=== PATIENT | female | born 1970 ===

== ENCOUNTER 2021-11-09 16:19 | Emergency (ER) | payer OTHER, SELFPAY ==
[2021-11-09 17:06] VITALS: BP 116/78; PULSE 75; RESP 16; TEMP 36.2; O2SAT 100; BMI 31.1
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
== END 2021-11-09 18:01 | disposition home or self-care (01) ==
PROVIDERS: Emergency Provider Emergency Medicine Emergency Medical Services
DX: S16.1XXA Strain of muscle, fascia and tendon at neck level, initial encounter (principal); M54.2 Cervicalgia; V43.62XA Car passenger injured in collision with other type car in traffic accident, initial encounter; Y93.9 Activity, unspecified; Y92.410 Unspecified street and highway as the place of occurrence of the external cause; Y99.9 Unspecified external cause status
CPT/HCPCS: 99283; 99284

== ENCOUNTER 2022-11-03 16:18 | Emergency (ER) | payer OTHER, SELFPAY ==
--- NOTE | 2022-11-03 16:31 | ED.SKABFB ---
HPI - Skin/Abscess/Foreign Bdy General Chief complaint: Extremity Injury, Upper <AMANDA Yang - Last Filed: 11/03/22 16:31> Stated complaint: splint in finger <AMANDA Yang - Last Filed: 11/03/22 16:31> Time Seen by Provider: 11/03/22 18:31 <AMANDA Yang - Last Filed: 11/03/22 16:31> Source: patient, RN notes reviewed and front desk host <Harmeet Ayala - Last Filed: 11/03/22 20:47> Mode of arrival: ambulatory <Harmeet Ayala - Last Filed: 11/03/22 20:47> Limitations: language barrier <Harmeet Ayala - Last Filed: 11/03/22 20:47> History of Present Illness HPI narrative: 52-year-old female presents for evaluation of a splinter under her right index finger nail Patient reports that she was working 2 days ago on Wednesday when she accidentally got the splinter under nail. She currently denies any pain. She states that she has not been using the finger because she is concerned if she had said it will her become infected <Harmeet Ayala - Last Filed: 11/03/22 20:47> Related Data Home medications: Previous Rx's Medication Instructions Recorded acetaminophen 325 mg tablet 650 mg PO Q4H PRN pain #20 tabs 11/09/21 (Tylenol) cyclobenzaprine 10 mg tablet 10 mg PO TID PRN muscle spasm #10 11/09/21 tabs <AMANDA Yang - Last Filed: 11/03/22 16:31> Allergies/Adverse reactions: Allergies Allergy/AdvReac Type Severity Reaction Status Date / Time aspirin [ASA] Allergy Unknown HIVES Unverified 11/09/21 17:16 Penicillins [PCN] Allergy Unknown HIVES Unverified 11/09/21 17:16 <AMANDA Yang - Last Filed: 11/03/22 16:31> Review of Systems Constitutional: Constitutional: Reports as per HPI, Denies chills and Denies fever(s) <Harmeet Ayala - Last Filed: 11/03/22 20:47> Cardiovascular: Cardiovascular: Denies chest pain <Harmeet Ayala - Last Filed: 11/03/22 20:47> Integumentary/Breasts: Comments: Patient has a small splinter visible under her right index finger now <Harmeet Ayala - Last Filed: 11/03/22 20:47> PMFSH Social History Social History: Social History Advance Directives: No Advance Directives Information Provided: No <AMANDA Yang - Last Filed: 11/03/22 16:31> Physical Exam Vital Signs: Vital Signs: Last Vital Signs Temp 97.7 F 11/03/22 16:33 Pulse 82 11/03/22 16:33 Resp 16 11/03/22 16:33 BP 131/69 11/03/22 16:33 Pulse Ox 99 11/03/22 16:33 O2 Del Method Room Air 11/03/22 16:33 BMI result Body Mass Index 31.1 <AMANDA Yang - Last Filed: 11/03/22 16:31> Vital Signs: Last Vital Signs Temp 97.7 F 11/03/22 16:33 Pulse 82 11/03/22 16:33 Resp 16 11/03/22 16:33 BP 131/69 11/03/22 16:33 Pulse Ox 99 11/03/22 16:33 O2 Del Method Room Air 11/03/22 16:33 BMI result Body Mass Index 31.1 <Harmeet Ayala - Last Filed: 11/03/22 20:47> Const: General: healthy appearing, comfortable, no acute distress, alert and awake <Harmeet Ayala - Last Filed: 11/03/22 20:47> Nutritional Appearance: well nourished <Harmeet Ayala - Last Filed: 11/03/22 20:47> Orientation/consciousness: patient oriented x3 <Harmeet Ayala - Last Filed: 11/03/22 20:47> HEENT: Head: Yes normocephalic and Yes atraumatic <Harmeet Ayala - Last Filed: 11/03/22 20:47> Throat: Yes posterior oropharynx normal <Harmeet Ayala - Last Filed: 11/03/22 20:47> Skin: Other: Patient has approximately 1 cm linear, foreign body visible underneath the right index finger now almost the tip of the nail <Harmeet Ayala - Last Filed: 11/03/22 20:47> Neuro: General: patient oriented x3 <Harmeet Ayala - Last Filed: 11/03/22 20:47> Cranial nerves: Yes Bilaterally intact EOM present <Harmeet Ayala - Last Filed: 11/03/22 20:47> Cognition (Neuro): normal cognition <Harmeet Ayala - Last Filed: 11/03/22 20:47> Course Course Course Narrative: TORRI- 16:30pm - 52yoF who is Czech-speaking presenting to the ER with complaints of a sliver to right index nail that occurred on Wednesday. Reports she is unsure if she is up-to-date on tetanus. Reports that she attempted to remove herself although was unsuccessful. Denies any other symptoms complaints concerns or injuries at this time. Plan: Patient to be seen in [facility] for removal of sliver <AMANDA Yang - Last Filed: 11/03/22 16:31> Medications Administered Discontinued Medications Generic Name Dose Route Start Last Admin Trade Name Freq PRN Reason Stop Dose Admin Lidocaine HCl 4 ml 11/03/22 18:49 11/03/22 19:06 Lidocaine Hcl 1 % Mpf 2 Ml Vial INFILTRATI 11/03/22 18:50 4 ml ONCE ONE Administration <AMANDA Yang - Last Filed: 11/03/22 16:31> Medications Administered Discontinued Medications Generic Name Dose Route Start Last Admin Trade Name Freq PRN Reason Stop Dose Admin Lidocaine HCl 4 ml 11/03/22 18:49 11/03/22 19:06 Lidocaine Hcl 1 % Mpf 2 Ml Vial INFILTRATI 11/03/22 18:50 4 ml ONCE ONE Administration <Harmeet Ayala - Last Filed: 11/03/22 20:47> Medical Decision Making Medical Decision Making MDM Narrative: See procedure note for foreign body removal <Harmeet Ayala - Last Filed: 11/03/22 20:47> Differential Diagnosis Foreign body Splinter Wound Puncture wound Cellulitis Paronychia <Harmeet Ayala - Last Filed: 11/03/22 20:47> Procedures Procedure Narrative Procedure Narrative: Patient may 1 cm linear foreign body underneath the right 2nd finger nail. The right 2nd finger was locally anesthetized with 1% lidocaine, approximately 4 cc total and a cane was injected at the MCP joint. Once good anesthesia was achieved, I was able to use forceps sign them underneath the fingernail to grab and pole of the foreign body out without incident. The entire foreign body was removed. The wound was then cleaned and dressed <Harmeet Ayala - Last Filed: 11/03/22 20:47> Discharge Plan Discharge Clinical Impression: Splinter <AMANDA Yang - Last Filed: 11/03/22 16:31> Patient Disposition: Home, Self-Care <AMANDA Yang Last Filed: 11/03/22 16:31> Additional Instructions: Keep the area clean and dry A small, wooden foreign body was removed from underneath her fingernail. The entire thing was removed, but there is some discoloration to the nail from the piece of foot <AMANDA Yang Last Filed: 11/03/22 16:31> Prescriptions: No Action cyclobenzaprine 10 mg tablet 10 mg PO TID PRN (Reason: muscle spasm) Qty: 10 0RF acetaminophen [Tylenol] 325 mg tablet 650 mg PO Q4H PRN (Reason: pain) Qty: 20 0RF <AMANDA Yang - Last Filed: 11/03/22 16:31> Interventions: ED Discharge Assessment Last Done: 11/03/22 19:22 <AMANDA Yang Last Filed: 11/03/22 16:31> Discharge Date/Time: 11/03/22 19:23 <AMANDA Yang Last Filed: 11/03/22 16:31>
[2022-11-03 16:33] VITALS: BP 131/69; PULSE 82; RESP 16; TEMP 36.5; O2SAT 99; BMI 31.1
[2022-11-03] MEDS: Lidocaine HCl 1 % MPF 2 ML VIAL 4 ML INFILTRATI (19:06)
== END 2022-11-03 19:23 | disposition home or self-care (01) ==
PROVIDERS: Emergency Provider Emergency Medicine Emergency Medical Services
DX: S61.240A Puncture wound with foreign body of right index finger without damage to nail, initial encounter (principal); W45.8XXA Other foreign body or object entering through skin, initial encounter; Y93.9 Activity, unspecified; Y92.9 Unspecified place or not applicable; Y99.9 Unspecified external cause status
CPT/HCPCS: 99282; 99283

== ENCOUNTER 2023-01-29 13:10 | Outpatient (REF) | payer OTHER, SELFPAY ==
--- NOTE | ~2023-01-29 | MM_ITS ---
EXAMINATION: MM SCREENING DIGITAL BREAST TOMOSYNTHESIS, BILATERAL CLINICAL INFORMATION: Screening. Asymptomatic. The lifetime risk of breast cancer based on the Tyrer-Cuzick Model is 11%. COMPARISON: Mammography: 03/12/2009 TECHNIQUE: Digital breast tomosynthesis is performed in both the craniocaudal and mediolateral oblique views along with computer-aided detection (CAD). Synthesized 2D images are generated from the tomosynthesis. Additional right MLO view is provided. FINDINGS: There are scattered areas of fibroglandular density (ACR BI-RADS breast composition Category b). Breast tissue composition borders on predominantly fatty, decreased from prior remote exam. There are no significant masses, abnormal calcifications, or other abnormalities. There is scattered minor small smooth nodularity. No architectural abnormality. The axilla and skin contours are unremarkable. MM/MM tomosynthesis screening BI IMPRESSION: No mammographic evidence of malignancy. ASSESSMENT: BI-RADS 2: Benign RECOMMENDATION: Routine annual mammography screening. This patient's information was entered into a reminder system with a target due date for their next mammogram.
== END 2023-01-29 13:11 | disposition home or self-care (01) ==
LOC: HO.MAMMO 13:10
PROVIDERS: PCP Internal Medicine; Visit Provider Internal Medicine
DX: Z12.31 Encounter for screening mammogram for malignant neoplasm of breast (principal)
CPT/HCPCS: 77063; 77067

== ENCOUNTER 2023-05-18 17:49 | Outpatient (REF) | payer OTHER, SELFPAY | END 2023-05-18 17:50 | disposition home or self-care (01) | LOC: HO.HHCLNP 17:49 | PROVIDERS: Visit Provider Internal Medicine | DX: Z11.52 Encounter for screening for COVID-19 (principal); Z20.822 Contact with and (suspected) exposure to COVID-19; J06.9 Acute upper respiratory infection, unspecified | CPT/HCPCS: 0241U ==

== ENCOUNTER 2023-10-29 12:47 | Outpatient (REF) | payer OTHER, SELFPAY ==
--- NOTE | ~2023-10-29 | XR_ITS ---
EXAMINATION: XR SHOULDER, RIGHT CLINICAL INFORMATION: Patient states 5 months of right shoulder pain and limited range of motion. COMPARISON: None available. TECHNIQUE: 5 views of the right shoulder. FINDINGS: Mild narrowing of the acromioclavicular joint. Glenohumeral alignment is preserved. Curvilinear calcification in the soft tissues superior to the humeral head suggests rotator cuff pathology. XR/XR shoulder RT min 2V IMPRESSION: 1. Curvilinear calcification in the soft tissues superior to the humeral head suggests rotator cuff pathology. 2. Mild degenerative changes acromioclavicular joint.
== END 2023-10-29 12:48 | disposition home or self-care (01) ==
LOC: HO.HHCX 12:47
PROVIDERS: Visit Provider Internal Medicine
DX: M25.511 Pain in right shoulder (principal); G89.29 Other chronic pain
CPT/HCPCS: 73030

== ENCOUNTER 2024-01-21 09:59 | Outpatient (AMB) | payer OTHER, SELFPAY ==
--- NOTE | 2024-01-21 10:09 | MHC.OFFVIS ---
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 Intake Note: Leanne is a 53 year old right hand dominant female who presents today as a new patient with complaints of right shoulder pain. Patient reports that she has had pain in the right shoulder for a few month now. Denies injury. She lifts frequently at her job which is aggravating her pain. She also feels increased pain with sleeping and with weather changes. 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 Patient reports that she has had pain in the right shoulder for a few month now. Denies injury. She lifts frequently at her job which is aggravating her pain. She also feels increased pain with sleeping and with weather changes. Physical Exam Const General: cooperative, healthy appearing, no acute distress and well groomed Orientation/consciousness: oriented to person and oriented to place HEENT Head: Yes normal to inspection, Yes normocephalic and Yes atraumatic Eyes General: appearance normal, both eyes and all related structures Alignment and Position: alignment normal Conjunctivae: conjunctivae normal EOM: EOMs intact bilaterally Neck Neck: Yes normal visual inspection and Yes trachea midline Resp Other: No rerpiratory distress Effort & Inspection: normal respiratory effort and able to speak in complete sentences GI Other: No abdominal distension Back/Spine/Pelvis Cervical Spine: normal cervical lordosis and cervical ROM normal Skin General skin exam: no rashes or lesions noted Neuro General: oriented to person, oriented to place and gait normal Extrem Other: 35/90/130/S1 +H/N neg lift off and neg EC Results Reviewed Results Reviewed: I personally reviewed relevant radiographs. 1) Curvilinear calcification in the soft tissues superior to the humeral head suggests rotator cuff pathology. 2) Mild degenerative changes acromioclavicular joint. Assessment & Plan Assessment & Plan (1) Bursitis of right shoulder: Code(s): M75.51 - Bursitis of right shoulder Category: Medical Plan: Right shoulder atraumatic shoulder pain with clinical e/o subacromial inflammation. I have written a script for physical therapy. She can return for injection/further imaging if PT is unhelpful Orders: Orders PT Evaluation and Treatment 01/21/24 M75.51 - Bursitis of right shoulder Medications: Discontinued cyclobenzaprine Discontinued Reason: Patient no longer taking 10 mg PO TID PRN 10 tabs 0RF muscle spasm Coding Level of Care Code New Pt Level 3 (62387) Diagnoses Bursitis of right shoulder M75.51
== END 2024-01-21 11:03 | disposition home or self-care (01) ==
PROVIDERS: PCP Internal Medicine; Visit Provider Orthopaedic Surgery
DX: M75.51 Bursitis of right shoulder (principal)
CPT/HCPCS: 99203

== ENCOUNTER → 2024-01-21 09:59 | Outpatient (BNVA) | payer OTHER, SELFPAY | PROVIDERS: PCP Internal Medicine; Visit Provider Orthopaedic Surgery | DX: M75.51 Bursitis of right shoulder (principal) | CPT/HCPCS: 99202 ==

== ENCOUNTER 2024-02-04 12:26 | Outpatient (REF) | payer OTHER, SELFPAY | END 2024-02-04 12:27 | disposition home or self-care (01) | LOC: HO.MAMMO 12:26 | PROVIDERS: PCP Internal Medicine; Visit Provider Internal Medicine | DX: Z12.31 Encounter for screening mammogram for malignant neoplasm of breast (principal) | CPT/HCPCS: 77063; 77067 ==

== ENCOUNTER → 2024-02-04 13:00 | Outpatient (BNV) | payer OTHER, SELFPAY | PROVIDERS: PCP Internal Medicine; Visit Provider Radiology Diagnostic Radiology | DX: Z12.31 Encounter for screening mammogram for malignant neoplasm of breast (principal) | CPT/HCPCS: 77063; 77067 ==

== ENCOUNTER 2024-02-28 14:30 | Outpatient (REF) | payer OTHER, SELFPAY ==
[2024-02-28 15:54] LABS: MANUAL DIFF FLAG NO
[2024-02-28 16:01] LABS: Basophils Percent Auto 0.5 % (0-2); Eosinophils Absolute Auto 0.2 X10*3/uL (0.0-0.4); Hematocrit 43.6 % (37.0-47.0); Hemoglobin 14.6 g/dl (12.0-16.0); Imm Gran Abs Auto 0.02 X10*3/uL (0.00-0.03); Imm Gran Pct Auto 0.2 % (0.0-0.4); Lymphocytes Percent Auto 34.3 % (20-40); Mean Corpuscular HGB Conc 33.5 g/dl (31.0-35.0); Mean Corpuscular Hemoglobin 28.9 pg (27.0-33.0); Mean Corpuscular Volume 86.2 fL (80.0-98.0); Mean Platelet Volume 9.8 fL (9.4-12.3); Monocytes Absolute Auto 0.6 X10*3/uL (0.1-1.2); Monocytes Percent Auto 7.2 % (2-11); Neutrophils Absolute Auto 4.8 x10*3/uL (2.0-8.3); Neutrophils Percent Auto 55.8 % (45-73); Platelet Count 284 X10*3/uL (160-400); Red Blood Count 5.06 X10*6/uL (4.20-5.50); Red Cell Distribution Width 12.2 % (11.0-16.0); White Blood Count 8.6 X10*3/uL (4.8-10.8)
[2024-02-28 16:20] LABS: Estimated Average Glucose 117 mg/dL; Hemoglobin A1c % 5.7 % (<6.0)
[2024-02-28 16:30] LABS: Alanine Aminotransferase 29 U/L (0-31); Albumin Level 4.5 g/dL (3.5-5.0); Alkaline Phosphatase 65 U/L (39-117); Anion Gap 15 (12-20); Aspartate Amino Transferase 21 U/L (5-31); Bilirubin Total 1.2 mg/dL (0.0-1.0); Blood Urea Nitrogen 16 mg/dL (9-16); Calcium 10.2 mg/dL (8.4-10.2); Carbon Dioxide 25 mmol/L (22-29); Chloride 104 mmol/L (96-108); Cholesterol 176 mg/dL (<200); Estimated Glomerular Filt Rate > 60; Glucose Random 64 mg/dL (60-115); HDL Cholesterol 53 mg/dL (>40); LDL Cholesterol Calculated 104 mg/dL (<100); Potassium 3.9 mmol/L (3.3-5.1); Sodium 140 mmol/L (135-145); Total Protein 7.5 g/dL (6.5-8.0); Triglycerides 96 mg/dL (<150)
[2024-02-28 16:40] LABS: Reflex LDLD? No; TSH reflex Free T4 6.02 uIU/mL (0.32-4.0); Vitamin D 25-OH Total 36.7 ng/mL (>30)
[2024-02-28 17:22] LABS: Free T4 (Free Thyroxine) 0.95 ng/dL (0.71-1.85)
== END 2024-02-28 14:31 | disposition home or self-care (01) ==
LOC: HO.HHCL 14:30
PROVIDERS: Visit Provider Internal Medicine
DX: Z00.00 Encounter for general adult medical examination without abnormal findings (principal)
CPT/HCPCS: 36415; 80053; 80061; 82306; 83036; 84439; 84443; 85025

== ENCOUNTER 2024-03-08 15:00 | Outpatient (RCR) | payer OTHER, SELFPAY ==
--- NOTE | 2024-02-14 11:47 | MHC.PT.EP ---
[facility] [place] Office [place] Office [place] Office [address] Jim Laughlin [address] [phone] F: [phone] F: [phone] F: [phone] F: [phone] Physical Therapy Plan of Care Date of Evaluation: 02/14/24 Date of Surgery: N/A Diagnosis: bursitis of R shoulder (RL) Assessment: pt is a 53 y/o female presenting to physical therapy w/ referring diagnosis of bursitis of right shoulder. Impairments include pain, decreased range of motion, decreased strength, impaired functional mobility, impaired postural awareness, and altered ambulation mechanics. pt is a good candidate for skilled PT due to age, potential remediation of impairments, typical disease/condition progression and prognosis, comorbidities, and motivation. pt would benefit from skilled PT intervention to provide a tailored strengthening and stretching exercise program, functional training, gait training, postural re-training, neuromuscular re-education, modalities as needed for pain, equipment safety demonstration. Frequency and Duration: The patient will be seen 2x/wk for 4 wks Short Term Goals: pt will be I w/ HEP to promote self-management of condition. pt will improve R shoulder flexion AROM by 10 degrees to promote ease in overhead reaching. Assisted Goals: pt will demo lifting from floor to chest 30# and chest to overhead 25# x5 reps ea for full return to work. pt will improve R shoulder functional IR AROM to at least T12 to promote ease in upper body ADLs. Treatment Plan: Modalities to reduce pain, spasms and effusion. Manual therapy to restore motion and function. Therapeutic exercise to improve strength and flexibility. Neuromuscular re-education for posture and balance. Therapeutic activities to return to functional activities of daily living. Electronically signed by: Kayleigh Solis PT, DPT Please sign and return to therapist. Thank you for your referral.
--- NOTE | 2024-03-29 16:24 | MHC.PT.DC ---
[facility] [place] Office [place] Office [place] Office [address] Jim Laughlin [address] [phone] F: [phone] F: [phone] F: [phone] F: [phone] Physical Therapy Discharge Report Diagnosis: bursitis of R shoulder (RL) Date of Surgery: N/A Date of Evaluation: 02/14/24 Date of Discharge: 03/29/24 Treatments to Date: 4 Cancellations to Date: 3 No Shows to Date: 2 Discharge Status: Visit Non-compliance Discharge Summary: Pt cancelled and no-showed remaining appointments. She has not called to re-schedule any appointments. She is discharged from this PT plan of care at this time/ Electronically signed by: Kayleigh Sivla, PT, DPT Please sign and return to therapist. Thank you for your referral.
== END 2024-03-29 16:24 | disposition home or self-care (01) ==
LOC: HO.PT 15:00
PROVIDERS: PCP Internal Medicine; Visit Provider Orthopaedic Surgery
DX: M75.51 Bursitis of right shoulder (principal)
CPT/HCPCS: 97110; 97140; 97161; 97530

== ENCOUNTER 2024-05-03 14:05 | Outpatient (REF) | payer OTHER, SELFPAY ==
[2024-05-03 17:09] LABS: TSH reflex Free T4 2.94 uIU/mL (0.32-4.0)
== END 2024-05-03 14:06 | disposition home or self-care (01) ==
LOC: HO.HHCL 14:05
PROVIDERS: Visit Provider Internal Medicine
DX: E03.8 Other specified hypothyroidism (principal)
CPT/HCPCS: 36415; 84443

== ENCOUNTER 2024-05-31 17:51 | Emergency (ER) | payer OTHER, SELFPAY ==
--- NOTE | 2024-05-31 18:21 | ED_ITS ---
HPI - General Adult General Chief complaint: Dental/Oral Stated complaint: right lower jaw pain/dentist saw nothing Time Seen by Provider: 05/31/24 18:43 Source: patient and RN notes reviewed Mode of arrival: ambulatory Limitations: no limitations History of Present Illness ED Provider: Katie Dalal PA-C HPI narrative: 53 y/o F who presents to the ER with complaints of ongoing right lower dental pain x 1 week. Pt has seen two separate dentists who advise her there is nothing wrong with her teeth. Has been taking ibuprofen without relief. No fevers or chills. No CP or SOB. No difficulty swallowing. No ear pain. No congestion. No cough, nausea vomiting or diarrhea. No other complaints or concerns at this time. MD complaint: R lower dental pain/facial pain Onset (ago): week(s) Location: face and mouth Severity: moderate Quality: stabbing and sharp Pain Consistency: constant Relieving factors: none Exacerbating factors: eating Associated symptoms: denies other symptoms Treatments prior to arrival: NSAID Related Data Previous Rx's ?Medication ?Instructions ?Recorded acetaminophen 325 mg tablet 650 mg (2 x 325 mg) PO Q4H PRN 11/09/21 (Tylenol) pain #20 tabs acetaminophen 500 mg tablet 500 - 1,000 mg (1 - 2 x 500 mg) PO 05/31/24 (Tylenol Extra Strength) QID PRN pain #30 tabs clindamycin HCl 300 mg capsule 600 mg (2 x 300 mg) PO TID 7 days 05/31/24 #42 caps Allergies Allergy/AdvReac Type Severity Reaction Status Date / Time aspirin [ASA] Allergy Unknown HIVES Verified 05/31/24 18:23 Penicillins [PCN] Allergy Unknown HIVES Verified 05/31/24 18:23 Review of Systems Review of Systems: Yes all other systems are reviewed and are negative Constitutional: Constitutional: Reports as per [facility] Past Medical History Attestation statement: The following information was validated with the patient. Social History Social History Advance Directives: No Advance Directives Information Provided: No Physical Exam ED Vital Signs: Vital Signs - 24 hr 05/31/24 18:22 05/31/24 18:45 Temperature 97.3 F 97.3 F Pulse Rate 75 75 Respiratory Rate 16 16 Blood Pressure 136/71 136/71 Pulse Oximetry 98 98 Oxygen Delivery Method Room Air Room Air BMI result Body Mass Index 34.7 Const General: cooperative, comfortable and no acute distress Orientation/consciousness: patient oriented x3 Limitations: no limitations HENMT Other: Exquiste tenderness to palpation overlying tooth number 32. No obvious dental decay. No surrounding gingival erythema, edema or fluctuance. No tenderness to palpation overlying the TMJ. Able to open and close mmouth without difficulty. No overlying skin changes or lesions to the R side of face. Head: Yes normal to inspection, Yes normocephalic and Yes atraumatic Ears: hearing grossly normal bilaterally and TM's normal bilaterally General nose exam: Normal external nose present Face and sinus: Yes normal facial exam Mouth: Normal oral and palatal mucosa present, oropharynx normal and moist mucous membranes Throat: Yes posterior oropharynx normal Eyes General: appearance normal, both eyes and all related structures Eyelids: Yes eyelids normal Conjunctivae: conjunctivae normal Sclerae: sclerae normal Pupils: Equal, round and reactive pupils present EOM: EOMs intact bilaterally Neck Neck: Yes normal visual inspection, Yes full ROM and Yes no lymphadenopathy Lymphatic: no lymphadenopathy noted Chest Chest palpation & inspection: normal inspection of the chest Resp Effort & Inspection: normal respiratory effort and able to speak in complete sentences Auscultation: clear to auscultation bilaterally, no crackles, no rales, no rhonchi and no wheezes Cardio Rate: regular rate Rhythm: regular rhythm Heart sounds: S1 normal heart sound present and S2 normal heart sound present GI Inspection: Yes normal to inspection Skin General skin exam: no rashes or lesions noted Trauma: no lacerations or abrasions Wounds: no wounds Neuro General: patient oriented x3 and moves all extremities Cranial nerves: Yes Equal, round and reactive pupils present Extrem General: Yes normal to inspection Right upper extremity: normal to inspection Left upper extremity: normal to inspection Right lower extremity: normal to inspection Left lower extremity: normal to inspection Course Course Course Narrative: This is an RME: Additional HPI, ROS, PE not included below will be deferred to primary provider. RME assessment and note performed by: Katie aDlal PA-C right sided facial pain since wednesday, no fevers or chills. Medical Decision Making Medical Decision Making MDM Narrative: This is a [id number] who presents to the ER with complaints of right lower dental pain x 1 week. She has f.u with her dentist however they report no problems with tooth. Exam findings with equiste tenderness to palpation overlying tooth number 32 without any dental decay, or surrounding erythema or fluctuance. She has no ttp overlying TMJ, no lesions noted to the face. DDX including dental decay, dental fx, abscess, TMJ, herpes zoster. Given very ttp overlying tooth will treat with abx, advised to f.u with dentist again. Given return precautions. Pt stable for d/c Differential Diagnosis Differential Diagnoses: The differential diagnosis associated with the p resentation includes see above Discharge Plan Discharge Clinical Impression: Pain, dental Patient Disposition: Home, Self-Care Instructions: Toothache (ED) Additional Instructions: You were seen in the emergency department due to dental pain. Please take prescribed antibiotic as directed. Finish the entire course even if your symptoms improve. You need to follow-up with a dentist. If any new or worsening symptoms occur including but not limited to severe pain, facial swelling, inability to swallow, shortness for breath, chest pain, please seek emergent care. Prescriptions: New clindamycin HCl 300 mg capsule 600 mg PO TID 7 Days Qty: 42 0RF acetaminophen [Tylenol Extra Strength] 500 mg tablet 500 - 1,000 mg PO QID PRN (Reason: pain) Qty: 30 0RF No Action acetaminophen [Tylenol] 325 mg tablet 650 mg PO Q4H PRN (Reason: pain) Qty: 20 0RF Interventions: ED Discharge Assessment Last Done: 05/31/24 18:45 Discharge Date/Time: 05/31/24 18:46 Print Language: Georgian
[2024-05-31 18:22] VITALS: BP 136/71; PULSE 75; RESP 16; TEMP 36.3; O2SAT 98; BMI 34.7
[2024-05-31 18:45] VITALS: BP 136/71; PULSE 75; RESP 16; TEMP 36.3; O2SAT 98
== END 2024-05-31 18:46 | disposition home or self-care (01) ==
PROVIDERS: Emergency Provider Emergency Medicine; PCP Internal Medicine
DX: K08.89 Other specified disorders of teeth and supporting structures (principal); R68.84 Jaw pain
CPT/HCPCS: 99282; 99283

== ENCOUNTER 2025-02-16 12:35 | Outpatient (REF) | payer OTHER, SELFPAY ==
--- OUTSIDE RECORDS SUMMARY | 2025-02-16 12:38 | XMS_ITS | Encounter Summary ---
Author Organization [employer] Address [address] [place] [address] Care Team Providers Care Home Economics Expert Name Role Phone Allison Hollis MD Primary Care Provide r Reason for Visit * Reason Comments Med Refill Encounter Details Date Type Department Care Team ([facility] st Contact Info) Description 03/30/2024 Refill [facility] [address] [place] [address] Allison Hollis MD [address] [place] [address] Subclinical hypothyroidism Social History Tobacco Use Types Packs/Day Years Used Date Smoking Tobacco: Never Passive Smoke Exposure: Never Smokeless Tobacco: Never Alcohol Use Standard Drinks/Week Comments Never 0 (1 standard drink = 0.6 oz pur e alcohol) Depression Answer Date Recorded Patient Health Questionnaire-9 Score 5 02/01/2024 Patient Health Questionnaire-9 Score 5 02/01/2024 Last PHQ-9: Questionnaire Data Not on file 0 02/01/2024 Housing Stability Answer Date Recorded What is your housing situation today? I have janelle lebron 06/07/[address] you li ve. Do you have problems with any of the following? None of the above 06/07/2023 Food Insecurity Answer Date Recorded Within the past 12 months, y ou worried that your food would run out before you got money to buy more: Never True 06/07/2023 Within the past 12 months,th e food you bought just didn't last and you didn't have enough money to get more: Never True Transportation Answer Date Recorded In the past 12 months, has l ack of transportation kept you from medical appts, meetings, work or from getting things needed for daily living? No 06/07/2023 Utilities Answer Date Recorded In the past 12 months, has t he electric, gas, oil or water company threatened to shut off services in your home? No 02/01/2024 Depression Answer Date Recorded Patient Health Questionnaire-2 Score 2 02/01/2024 Comments Unknown Sex and Gender Information Value Date Recorded Sex Assigned at Female 2022 10:15 AM EDT Legal Sex Female 10:15 AM EDT Gender Identity Female 2022 10:15 AM EDT Sexual Orientation Straight 2022 10 :15 AM EDT documented as of this encounter Plan of Treatment Not on file documented as of this encounter Visit Diagnoses Diagnosis Subclinical hypothyroidism Other specified acquired hypothyroidism documented in this encounter Additional Health Concerns Assessment Noted Time PHQ-9 Depression Total Score: 5 02/01/20 24 2:50 PM EDT documented as of this encounter Care Teams Home Economics Expert Relationship Specialty Start Date End Date Allison Hollis MD [address] [place] [id number] PCP - General Family Medicine 06/07/18 documented as of this encounter
--- OUTSIDE RECORDS SUMMARY | 2025-02-16 12:38 | XMS_ITS | Patient Health Record ---
Author Organization [facility] Address [address] [place] [address] Care Team Providers Care Front Sight Attacher Name Role Phone Darshan Negron Unavailable [phone] Reason For Referral No Information Plan Of Treatment No Information
== END 2025-02-16 12:36 | disposition home or self-care (01) ==
LOC: HO.MAMMO 12:35
PROVIDERS: PCP Internal Medicine; Visit Provider Internal Medicine
DX: Z12.31 Encounter for screening mammogram for malignant neoplasm of breast (principal)
CPT/HCPCS: 77063; 77067

== ENCOUNTER → 2025-02-16 13:00 | Outpatient (BNV) | payer OTHER, SELFPAY | PROVIDERS: PCP Internal Medicine; Visit Provider Internal Medicine | DX: Z12.31 Encounter for screening mammogram for malignant neoplasm of breast (principal) | CPT/HCPCS: 77063; 77067 ==